=== PATIENT | male | born 1945 | race Caucasian/White ===

== ENCOUNTER → 2017-07-09 | Outpatient (CLI) | payer OTHER ==
[~2017-07-09] MED LIST: ATOR40TA71 PO; DABI150C PO; DIGO125T87 PO; DILT300C3 PO; FURO40TA5 PO; METH750T3 PO; MULT-1258 PO; OMEP20TA25 PO; SPIR25TA6 PO; TRAM50TA4 PO; VALS160T29 PO
== END | disposition home or self-care (01) ==
LOC: RAH 14:17
PROVIDERS: ATTEND Surgery
DX: N63.42 Unspecified lump in left breast, subareolar (principal)
CPT/HCPCS: 76641

== ENCOUNTER → 2017-10-14 | Outpatient (CLI) | payer OTHER ==
[~2017-10-14] MED LIST changes: -DILT300C3 PO; +DILT300C54 PO
== END | disposition home or self-care (01) ==
LOC: SHCH 08:03
PROVIDERS: ATTEND Internal Medicine Cardiovascular Disease
DX: I48.2 Chronic atrial fibrillation (principal); I34.0 Nonrheumatic mitral (valve) insufficiency; I11.0 Hypertensive heart disease with heart failure; I50.42 Chronic combined systolic (congestive) and diastolic (congestive) heart failure; I25.10 Atherosclerotic heart disease of native coronary artery without angina pectoris
CPT/HCPCS: 93306

== ENCOUNTER → 2017-12-04 | Outpatient (CLI) | payer OTHER ==
[~2017-12-04] MED LIST changes: +BACL10TA PO; +METO100T14 PO; +POTA-9 PO; +SACU1TAB7 PO
== END | disposition home or self-care (01) ==
LOC: SHCH 11:03
PROVIDERS: ATTEND Internal Medicine Cardiovascular Disease
DX: I51.7 Cardiomegaly (principal); I48.2 Chronic atrial fibrillation; Z95.0 Presence of cardiac pacemaker
CPT/HCPCS: 93306

== ENCOUNTER 2017-12-30 10:00 | Inpatient (IN) | payer OTHER ==
[~2017-12-30] VITALS: Ht 185.4 cm; Wt 97.2 kg
[~2017-12-30 10:00] MED LIST changes: -ATOR40TA71 PO; -DIGO125T87 PO; -DILT300C54 PO; -FURO40TA5 PO; +FURO40TA7 PO; -METH750T3 PO; -METO100T14 PO; -OMEP20TA25 PO; -SPIR25TA6 PO; -TRAM50TA4 PO; -VALS160T29 PO
[2017-12-30 12:15] VITALS: BP 148/91
[2017-12-30 12:19] LABS: BASOPHILS % (AUTO) 1.7 % (0.0-5.0); EOSINOPHILS % (AUTO) 2.6 % (0.0-8.0); HEMATOCRIT 45.3 % (42-54); LYMPHOCYTES % (AUTO) 26.9 % (21.0-51.0); MEAN CORPUSCULAR HEMOGLOBIN 29.8 pg (27.0-33.0); MEAN CORPUSCULAR HGB CONC 32.5 g/dL (32.0-36.0); MEAN CORPUSCULAR VOLUME 91.7 fL (79-99); MONOCYTES % (AUTO) 11.1 % (3.0-13.0); NEUTROPHILS % (AUTO) 57.7 % (40.0-77.0); NUCLEATED RED BLOOD CELLS 0.1 % (0.0-0.19); PLATELET COUNT (AUTO) 144 K/uL (130-400); RED BLOOD CELL COUNT(AUTO) 4.94 MIL/uL (4.50-6.20); RED CELL DISTRIBUTION WIDTH 16.1 % (11.0-15.5); WHITE BLOOD COUNT (AUTO) 4.8 K/uL (4.8-10.8)
[2017-12-30] MEDS ORDERED: METO100T14 PO (12:34)
[2017-12-30] MEDS ORDERED: ATOR40TA71 PO (12:35)
[2017-12-30 12:36] LABS: ALBUMIN 3.2 g/dL (3.5-5.0); BILIRUBIN,TOTAL 0.8 mg/dL (0.2-1.0); CREATININE 1.2 mg/dL (0.5-1.5); POTASSIUM 4.6 mmol/L (3.5-5.1); TOTAL PROTEIN, SERUM 6.9 g/dL (6.0-8.3)
[2017-12-30 12:45] LABS: HEMOGLOBIN A1C 6.3 % (4.0-6.0)
[2017-12-30 13:08] LABS: INR 1.02 (0.85-1.15); PARTIAL THROMBOPLASTIN TIME 28.9 SEC (26.3-35.5); PROTHROMBIN TIME 10.7 SEC (9.6-11.6)
[2017-12-31] VITALS (18 sets, daily range): BP systolic 94–159; BP diastolic 50–86
[2017-12-31] MEDS: CEFUROXIME SODIUM 1.5 GM VIAL IVP SCH ×3 (06:30→21:02)
[2017-12-31] MEDS ORDERED: SODIUM CHLORIDE 0.9% 1000ML 1,000 ML IV ONE (06:38)
[2017-12-31] MEDS ORDERED: PAPAVERINE HCL 30 MG/ML 2ML VIAL ONE (07:18)
[2017-12-31] MEDS ORDERED: NITROGLYCERIN 50 MG/D5% WATER 1 BOT ONE (07:19)
[2017-12-31] MEDS ORDERED: BACITRACIN 50,000 UNIT VIAL ONE (07:19)
[2017-12-31] MEDS ORDERED: AMIODARONE HCL 50 MG/ML 3 ML VIAL ONE (07:35)
[2017-12-31] MEDS ORDERED: ROCURONIUM BROMIDE 10MG/1ML 5ML VL ONE (07:35)
[2017-12-31] MEDS ORDERED: SODIUM BICARB 50MEQ 50ML VIAL ONE (08:03)
[2017-12-31] MEDS ORDERED: PROTAMINE SULFATE 10 MG/ML 25ML VIAL IV ONE (08:03)
[2017-12-31] MEDS ORDERED: ESMOLOL HCL 10 MG/ML 10 ML VIAL ONE (08:03)
[2017-12-31] MEDS ORDERED: EPINEPHRINE 1 MG/ML AMPULE ONE (08:03)
[2017-12-31] MEDS ORDERED: LIDOCAINE PF 2% 5ML ABBOJECT ONE (08:03)
[2017-12-31] MEDS ORDERED: HEPARIN SODIUM 1000UNIT/ML 10ML VIAL ONE (08:03)
[2017-12-31] MEDS ORDERED: NOREPINEPHRINE BITARTRATE 1 MG/1 ML ML IV ONE (08:04)
[2017-12-31] MEDS ORDERED: AMINOCAPROIC ACID 250 MG/ML 20 ML VIAL IV ONE ×2 (08:04→12:00)
[2017-12-31] MEDS ORDERED: KETAMINE 50MG/ML SYRINGE 50 MG/ML DISP.SYRIN IV ONE (08:04)
[2017-12-31] MEDS ORDERED: MIDAZOLAM HCL 1 MG/ML 5ML VIAL ONE (08:04)
[2017-12-31] MEDS ORDERED: FENTANYL CITRATE PF 50 MCG/1 ML 20ML VIAL IJ ONE (08:04)
[2017-12-31] MEDS ORDERED: PROPOFOL 10 MG/ML 20ML VIAL IV ONE (08:04)
[2017-12-31] MEDS ORDERED: THROMBIN-JMI 5000 UNIT/VIAL TP ONE (08:12)
[2017-12-31] MEDS ORDERED: CITRIC ACID/SODIUM CITRATE 30 ML UDCUP ONE (08:39)
[2017-12-31 08:57] LABS: ABG BASE EXCESS -1.3 mmol/L (-2.0-3.0); ABG HCO3 23.2 mmol/L (21.0-28.0); ABG OXYGEN SATURATION 99.5 % (95.0-99.0); ABG PCO2 39 mmHg (35-48)
[2017-12-31] MEDS ORDERED: SODIUM CHLORIDE 0.9% 500ML 500 ML IV SCH (09:26)
[2017-12-31] MEDS ORDERED: ACETAMINOPHEN 650 MG SUPPOSITORY RC PRN (09:30)
[2017-12-31] MEDS ORDERED: MORPHINE SULFATE 4 MG/1ML SYG IV PRN (09:30)
[2017-12-31] MEDS ORDERED: NITROGLYCERIN 50 MG/D5% WATER 250 BOT IV SCH (09:30)
[2017-12-31] MEDS ORDERED: MAGNESIUM 2GM PREMIX 50ML 50 ML IV PRN (09:30)
[2017-12-31] MEDS ORDERED: ONDANSETRON HCL 4 MG/2 ML VIAL IV PRN (09:30)
[2017-12-31] MEDS ORDERED: AMINOCAPROIC ACID 15,000 MG in SODIUM CHLORIDE 0.9% 250 ML IV SCH (09:30)
[2017-12-31] MEDS ORDERED: GLUCAGON 1MG KIT 1 MG ML IM PRN (09:30)
[2017-12-31] MEDS ORDERED: SODIUM CHLORIDE 0.9% 1000ML 1,000 ML IV SCH (09:30)
[2017-12-31] MEDS ORDERED: INSULIN REGULAR, HUMAN 3ML 100 UNIT in SODIUM CHLORIDE 0.9% 99 ML IV SCH ×2 (09:30)
[2017-12-31] MEDS ORDERED: ALBUMIN (HUMAN) 5% 250 ML IV PRN (09:30)
[2017-12-31] MEDS ORDERED: MORPHINE SULFATE 2 MG/ML 1ML SYG IV PRN (09:30)
[2017-12-31] MEDS ORDERED: NOREPINEPHRINE 4MG/NS 250ML 250 ML IV PRN (09:30)
[2017-12-31] MEDS ORDERED: SODIUM CHLORIDE 0.9% 250 ML IV PRN (09:30)
[2017-12-31] MEDS ORDERED: DEXTROSE 50%-WATER 50 ML DISP.SYRIN IV PRN (09:30)
[2017-12-31] MEDS ORDERED: SODIUM CHLORIDE 0.9% 10 ML VIAL IVP PRN (09:30)
[2017-12-31] MEDS ORDERED: CALCIUM GLUCONATE 1 GM in SODIUM CHLORIDE 0.9% 50 ML IV PRN (09:30)
[2017-12-31] MEDS ORDERED: POTASSIUM PHOS 15 mMOL+NS250ML 250 ML IV PRN (09:30)
[2017-12-31] MEDS ORDERED: EPINEPHRINE 8 MG in SODIUM CHLORIDE 0.9% 250 ML IV PRN (09:30)
[2017-12-31] MEDS ORDERED: PROPOFOL 1000 MG/100 ML 100 ML IV PRN (09:30)
[2017-12-31] MEDS ORDERED: ROCURONIUM 10MG/1ML SYR 10 MG/ML ML ONE (09:48)
[2017-12-31 09:50] LABS: ABG BASE EXCESS -0.3 mmol/L (-2.0-3.0); ABG PCO2 33 mmHg (35-48)
[2017-12-31 10:39] LABS: ABG BASE EXCESS 0.9 mmol/L (-2.0-3.0); ABG HCO3 24.3 mmol/L (21.0-28.0); ABG OXYGEN SATURATION 98.7 % (95.0-99.0); ABG PCO2 35 mmHg (35-48)
[2017-12-31 11:08] LABS: ABG BASE EXCESS 0.4 mmol/L (-2.0-3.0); ABG OXYGEN SATURATION 98.7 % (95.0-99.0); ABG PCO2 36 mmHg (35-48)
[2017-12-31] MEDS ORDERED: OCTYL 2-CYANOACRYLATE 1 EACH TP ONE (11:18)
[2017-12-31 11:48] LABS: ABG BASE EXCESS -0.4 mmol/L (-2.0-3.0); ABG HCO3 23.4 mmol/L (21.0-28.0); ABG OXYGEN SATURATION 98.8 % (95.0-99.0); ABG PCO2 36 mmHg (35-48)
[2017-12-31] MEDS ORDERED: PROTAMINE SULFATE 10 MG/ML 5 ML VIAL ONE (11:56)
[2017-12-31] MEDS ORDERED: HEPARIN SODIUM 1000UNIT/ML 10ML VIAL IV ONE (12:00)
[2017-12-31] MEDS ORDERED: CALCIUM CHLORIDE 100 MG/ML 10 ML SYG IVP ONE (12:00)
[2017-12-31] MEDS ORDERED: ALBUMIN (HUMAN) 25% 50 ML IV ONE (12:00)
[2017-12-31] MEDS ORDERED: MANNITOL 25% 50ML VIAL IV ONE (12:00)
[2017-12-31] MEDS ORDERED: PHENYLEPHRINE HCL 10 MG/ML 1ML VIAL IV ONE (12:00)
[2017-12-31] MEDS ORDERED: SODIUM BICARB 8.4% 50ML SYRINGE IVP ONE (12:00)
[2017-12-31] MEDS ORDERED: FUROSEMIDE 10 MG/ML 2ML VIAL IVP ONE (12:00)
[2017-12-31] MEDS ORDERED: CEFUROXIME SODIUM 1.5 GM VIAL ONE (12:16)
[2017-12-31 12:29] LABS: ABG HCO3 22.5 mmol/L (21.0-28.0); ABG OXYGEN SATURATION 98.7 % (95.0-99.0); ABG PCO2 38 mmHg (35-48)
[2017-12-31 13:25] LABS: ABG BASE EXCESS -5.4 mmol/L (-2.0-3.0); ABG HCO3 20.2 mmol/L (21.0-28.0); ABG OXYGEN SATURATION 97.1 % (95.0-99.0); ABG PCO2 40 mmHg (35-48)
[2017-12-31 13:31] LABS: HEMATOCRIT 37.8 % (42-54); MEAN CORPUSCULAR HEMOGLOBIN 30.5 pg (27.0-33.0); MEAN CORPUSCULAR HGB CONC 33.4 g/dL (32.0-36.0); MEAN CORPUSCULAR VOLUME 91.3 fL (79-99); PLATELET COUNT (AUTO) 176 K/uL (130-400); RED BLOOD CELL COUNT(AUTO) 4.14 MIL/uL (4.50-6.20); RED CELL DISTRIBUTION WIDTH 16.2 % (11.0-15.5); WHITE BLOOD COUNT (AUTO) 13.5 K/uL (4.8-10.8)
[2017-12-31 13:42] LABS: CREATININE 1.4 mg/dL (0.5-1.5); MAGNESIUM 1.7 mg/dL (1.80-2.40); PHOSPHORUS 3.3 mg/dL (2.5-4.9); POTASSIUM 3.7 mmol/L (3.5-5.1)
[2017-12-31] MEDS: POTASSIUM CHLORIDE 20MEQ/100ML 100 ML IV PRN ×2 (13:59→21:21)
[2017-12-31] MEDS: SODIUM BICARB 50MEQ 50ML VIAL IV PRN ×2 (13:59→16:28)
[2017-12-31 15:03] LABS: ABG BASE EXCESS -1.5 mmol/L (-2.0-3.0); ABG HCO3 22.7 mmol/L (21.0-28.0); ABG OXYGEN SATURATION 96.6 % (95.0-99.0); ABG PCO2 37 mmHg (35-48)
[2017-12-31 16:12] LABS: ABG BASE EXCESS -8.8 mmol/L (-2.0-3.0); ABG OXYGEN SATURATION 96.9 % (95.0-99.0); ABG PCO2 23 mmHg (35-48)
[2017-12-31] MEDS ORDERED: KETOROLAC TROMETHAMINE 30MG/ML ONE (16:47)
[2017-12-31 17:22] LABS: ABG BASE EXCESS 3.6 mmol/L (-2.0-3.0); ABG OXYGEN SATURATION 97.6 % (95.0-99.0); ABG PCO2 37 mmHg (35-48)
[2017-12-31] MEDS ORDERED: KETOROLAC TROMETHAMINE 30MG/ML IV ONE (17:45)
[2017-12-31 18:45] LABS: ABG HCO3 26.8 mmol/L (21.0-28.0); ABG OXYGEN SATURATION 98.3 % (95.0-99.0); ABG PCO2 38 mmHg (35-48)
[2017-12-31] MEDS: TRAMADOL HCL 50 MG TABLET PO PRN (19:31)
[2017-12-31] MEDS: ATORVASTATIN CALCIUM 40 MG TABLET PO SCH (21:00)
[2017-12-31 21:11] LABS: MAGNESIUM 2.4 mg/dL (1.80-2.40); POTASSIUM 3.6 mmol/L (3.5-5.1)
[2018-01-01] VITALS (26 sets, daily range): BP systolic 89–144; BP diastolic 46–74
[2018-01-01] MEDS: TRAMADOL HCL 50 MG TABLET PO PRN (01:32)
[2018-01-01 03:49] LABS: HEMATOCRIT 33.7 % (42-54); MEAN CORPUSCULAR HEMOGLOBIN 30.1 pg (27.0-33.0); MEAN CORPUSCULAR HGB CONC 33.2 g/dL (32.0-36.0); MEAN CORPUSCULAR VOLUME 90.5 fL (79-99); NUCLEATED RED BLOOD CELLS 0.1 % (0.0-0.19); PLATELET COUNT (AUTO) 120 K/uL (130-400); RED BLOOD CELL COUNT(AUTO) 3.72 MIL/uL (4.50-6.20); RED CELL DISTRIBUTION WIDTH 16.5 % (11.0-15.5); WHITE BLOOD COUNT (AUTO) 6.8 K/uL (4.8-10.8)
[2018-01-01 04:00] LABS: INR 1.15 (0.85-1.15); PARTIAL THROMBOPLASTIN TIME 28.2 SEC (26.3-35.5)
[2018-01-01 04:04] LABS: CREATININE 1.5 mg/dL (0.5-1.5); MAGNESIUM 2.4 mg/dL (1.80-2.40); PHOSPHORUS 4.8 mg/dL (2.5-4.9); POTASSIUM 3.7 mmol/L (3.5-5.1)
[2018-01-01] MEDS: POTASSIUM CHLORIDE 20MEQ/100ML 100 ML IV PRN (04:11)
[2018-01-01 05:29] LABS: ABG OXYGEN SATURATION 97.4 % (95.0-99.0); ABG PCO2 34 mmHg (35-48)
[2018-01-01] MEDS ORDERED: BACLOFEN 10 MG TABLET PO PRN (05:45)
[2018-01-01] MEDS: CEFUROXIME SODIUM 1.5 GM VIAL IVP SCH ×3 (06:01→20:15)
[2018-01-01] MEDS ORDERED: METOPROLOL TARTRATE 1 MG/ML 5ML VIAL IV PRN (06:45)
[2018-01-01] MEDS: HYDROCODONE/ACETAMINOPHEN 10/325 MG TAB PO PRN ×4 (06:53→23:46)
[2018-01-01] MEDS: PANTOPRAZOLE SODIUM 40 MG TABLET.DR PO SCH (08:16)
[2018-01-01] MEDS: ASPIRIN 325MG EC TAB 325 MG TABLET.DR PO SCH (08:16)
[2018-01-01] MEDS ORDERED: FUROSEMIDE 10 MG/ML 2ML VIAL IV SCH (09:00)
[2018-01-01] MEDS ORDERED: ENALAPRILAT DIHYDRATE 1.25MG/ML 1ML VIAL IV PRN (09:00)
[2018-01-01] MEDS: METOPROLOL TARTRATE 50 MG TAB PO SCH ×2 (09:27→20:04)
[2018-01-01] MEDS: ATORVASTATIN CALCIUM 40 MG TABLET PO SCH (20:04)
[2018-01-01] MEDS ORDERED: FUROSEMIDE 10 MG/ML 4ML VIAL IV SCH (21:00)
[2018-01-02] VITALS (27 sets, daily range): BP systolic 79–161; BP diastolic 38–92
[2018-01-02] MEDS: HYDROCODONE/ACETAMINOPHEN 10/325 MG TAB PO PRN ×4 (02:30→23:43)
[2018-01-02 03:32] LABS: HEMATOCRIT 33.3 % (42-54); MEAN CORPUSCULAR HEMOGLOBIN 29.8 pg (27.0-33.0); MEAN CORPUSCULAR HGB CONC 32.4 g/dL (32.0-36.0); MEAN CORPUSCULAR VOLUME 91.9 fL (79-99); PLATELET COUNT (AUTO) 125 K/uL (130-400); RED BLOOD CELL COUNT(AUTO) 3.62 MIL/uL (4.50-6.20); RED CELL DISTRIBUTION WIDTH 16.4 % (11.0-15.5); WHITE BLOOD COUNT (AUTO) 9.1 K/uL (4.8-10.8)
[2018-01-02 03:36] LABS: CREATININE 2.4 mg/dL (0.5-1.5); MAGNESIUM 2.2 mg/dL (1.80-2.40); PHOSPHORUS 5.6 mg/dL (2.5-4.9); POTASSIUM 4.2 mmol/L (3.5-5.1)
[2018-01-02] MEDS ORDERED: FUROSEMIDE 10 MG/ML 4ML VIAL IV SCH (08:00)
[2018-01-02] MEDS: SODIUM CHLORIDE 0.9% 1000ML 1,000 ML IV SCH ×2 (08:00→20:45)
[2018-01-02] MEDS: ENOXAPARIN SODIUM 30 MG/0.3 ML SQ SCH (08:27)
[2018-01-02] MEDS: PANTOPRAZOLE SODIUM 40 MG TABLET.DR PO SCH (08:28)
[2018-01-02] MEDS: ASPIRIN 325MG EC TAB 325 MG TABLET.DR PO SCH (08:28)
[2018-01-02] MEDS ORDERED: METOPROLOL TARTRATE 25 MG TAB PO SCH (09:00)
[2018-01-02] MEDS ORDERED: FUROSEMIDE 20 MG TABLET PO SCH (09:00)
[2018-01-02] MEDS: DOPAMINE 800MG/D5 250ML 250 ML IV PRN ×2 (09:13→20:45)
[2018-01-02] MEDS ORDERED: NOREPINEPHRINE 4MG/NS 250ML 250 ML IV SCH (12:30)
[2018-01-02] MEDS ORDERED: CEFEPIME HCL 2 GM VIAL IVP SCH (14:00)
[2018-01-02 14:10] LABS: BILIRUBIN,URINE Small (NEGATIVE); COLOR,URINE Dark Yellow (YELLOW); GLUCOSE, URINE (UA) Negative (NEGATIVE); KETONES,URINE Trace mg/dL (NEGATIVE); LEUKOCYTE ESTERASE ,URINE Small (NEGATIVE); NITRATE,URINE Negative (NEGATIVE); OCCULT BLOOD,URINE Small (NEGATIVE); PROTEIN,URINE Negative (NEGATIVE)
[2018-01-02 14:11] LABS: SODIUM,URINE RANDOM < 15 mmol/l (40-220)
[2018-01-02 14:13] LABS: APPEARANCE,URINE SLIGHTLY CLOUDY (CLEAR)
[2018-01-02 14:18] LABS: BACTERIA,URINE Few /HPF (None Seen)
[2018-01-02 14:19] LABS: MUCUS,URINE Few LPF (None Seen); SQUAMOUS EPITHELIAL CELL,UR Rare /HPF (0-2)
[2018-01-02] MEDS: CEFEPIME HCL 1 GM VIAL IVP SCH (15:29)
[2018-01-02] MEDS: ATORVASTATIN CALCIUM 40 MG TABLET PO SCH (20:44)
[2018-01-02] MEDS: DOXYCYCLINE HYCLATE 100 MG TABLET PO SCH (20:45)
[2018-01-03] VITALS (25 sets, daily range): BP systolic 105–159; BP diastolic 48–101
[2018-01-03] MEDS: CEFEPIME HCL 1 GM VIAL IVP SCH ×2 (01:21→13:23)
[2018-01-03 04:27] LABS: HEMATOCRIT 28.4 % (42-54); MEAN CORPUSCULAR HEMOGLOBIN 30.2 pg (27.0-33.0); MEAN CORPUSCULAR VOLUME 91.7 fL (79-99); NUCLEATED RED BLOOD CELLS 0.1 % (0.0-0.19); PLATELET COUNT (AUTO) 112 K/uL (130-400); RED CELL DISTRIBUTION WIDTH 16.8 % (11.0-15.5); WHITE BLOOD COUNT (AUTO) 7.1 K/uL (4.8-10.8)
[2018-01-03 04:53] LABS: ALBUMIN 2.2 g/dL (3.5-5.0); BILIRUBIN,TOTAL 1.3 mg/dL (0.2-1.0); CREATININE 1.9 mg/dL (0.5-1.5); MAGNESIUM 2.3 mg/dL (1.80-2.40); PHOSPHORUS 4.1 mg/dL (2.5-4.9); THYROID STIMULATING HORMONE 3.91 uIU/mL (0.36-3.74); TOTAL PROTEIN, SERUM 5.7 g/dL (6.0-8.3); URIC ACID 8.8 mg/dL (2.6-7.2)
[2018-01-03] MEDS ORDERED: FUROSEMIDE 20 MG TABLET PO SCH (09:00)
[2018-01-03] MEDS: FOLIC ACID/VITAMIN B COMP W-C 1 MG CAPSULE PO SCH (09:25)
[2018-01-03] MEDS: ASPIRIN 325MG EC TAB 325 MG TABLET.DR PO SCH (09:25)
[2018-01-03] MEDS: ENOXAPARIN SODIUM 30 MG/0.3 ML SQ SCH (09:25)
[2018-01-03] MEDS: DOXYCYCLINE HYCLATE 100 MG TABLET PO SCH ×2 (09:25→20:44)
[2018-01-03] MEDS: PANTOPRAZOLE SODIUM 40 MG TABLET.DR PO SCH (09:25)
[2018-01-03] MEDS: HYDROCODONE/ACETAMINOPHEN 10/325 MG TAB PO PRN ×2 (09:26→15:27)
[2018-01-03] MEDS: SODIUM CHLORIDE 0.9% 1000ML 1,000 ML IV SCH (09:59)
[2018-01-03] MEDS ORDERED: DIGOXIN 250 MCG/ML 2ML AMP IV SCH (10:00)
[2018-01-03] MEDS: METOPROLOL TARTRATE 25 MG TAB PO SCH ×2 (13:23→20:44)
[2018-01-03] MEDS: ATORVASTATIN CALCIUM 40 MG TABLET PO SCH (20:44)
[2018-01-04] VITALS (15 sets, daily range): BP systolic 123–154; BP diastolic 63–94
[2018-01-04] MEDS: CEFEPIME HCL 1 GM VIAL IVP SCH (01:38)
[2018-01-04] MEDS: TRAMADOL HCL 50 MG TABLET PO PRN (03:53)
[2018-01-04 04:15] LABS: HEMATOCRIT 29.6 % (42-54); MEAN CORPUSCULAR HEMOGLOBIN 31.2 pg (27.0-33.0); MEAN CORPUSCULAR HGB CONC 33.7 g/dL (32.0-36.0); MEAN CORPUSCULAR VOLUME 92.5 fL (79-99); NUCLEATED RED BLOOD CELLS 0.1 % (0.0-0.19); PLATELET COUNT (AUTO) 139 K/uL (130-400); RED CELL DISTRIBUTION WIDTH 16.3 % (11.0-15.5)
[2018-01-04 04:21] LABS: CREATININE 1.4 mg/dL (0.5-1.5); POTASSIUM 3.9 mmol/L (3.5-5.1)
[2018-01-04 04:30] LABS: BAND NEUTROPHILS % (MANUAL) 2 % (0-2); LYMPHOCYTES % (MANUAL) 20 % (22-44); MONOCYTES % (MANUAL) 14 % (2-9); SEGMENTED NEUTROPHILS % 64 % (40-70)
[2018-01-04 04:31] LABS: MAN.DIFF COMMENT-IMPRESSION MANUAL DIFFERENTIAL; PLATELET MORPHOLOGY COMMENT SLIGHTLY DECREASED
[2018-01-04] MEDS: ASPIRIN 325MG EC TAB 325 MG TABLET.DR PO SCH (08:03)
[2018-01-04] MEDS: METOPROLOL TARTRATE 25 MG TAB PO SCH (08:03)
[2018-01-04] MEDS: DOXYCYCLINE HYCLATE 100 MG TABLET PO SCH ×2 (08:03→20:02)
[2018-01-04] MEDS: FOLIC ACID/VITAMIN B COMP W-C 1 MG CAPSULE PO SCH (08:03)
[2018-01-04] MEDS: PANTOPRAZOLE SODIUM 40 MG TABLET.DR PO SCH (08:03)
[2018-01-04] MEDS: ENOXAPARIN SODIUM 30 MG/0.3 ML SQ SCH (08:58)
[2018-01-04] MEDS ORDERED: DIGOXIN 125 MCG TABLET PO SCH (09:00)
[2018-01-04] MEDS ORDERED: BACLOFEN 10 MG TABLET PO PRN (11:00)
[2018-01-04] MEDS: DILTIAZEM HCL 60 MG TABLET PO SCH ×2 (13:58→20:05)
[2018-01-04] MEDS: ATORVASTATIN CALCIUM 40 MG TABLET PO SCH (20:02)
[2018-01-04] MEDS: METOPROLOL TARTRATE 50 MG TAB PO SCH (20:02)
[2018-01-04] MEDS: DABIGATRAN ETEXILATE MESYLATE 150 MG CAPSULE PO SCH (20:08)
[2018-01-04] MEDS: HYDROCODONE/ACETAMINOPHEN 10/325 MG TAB PO PRN (21:28)
[2018-01-05 03:57] VITALS: BP 156/88
[2018-01-05 04:26] LABS: BASOPHILS % (AUTO) 0.9 % (0.0-5.0); EOSINOPHILS % (AUTO) 1.3 % (0.0-8.0); HEMATOCRIT 29.8 % (42-54); LYMPHOCYTES % (AUTO) 11.8 % (21.0-51.0); MEAN CORPUSCULAR HEMOGLOBIN 30.2 pg (27.0-33.0); MEAN CORPUSCULAR HGB CONC 33.2 g/dL (32.0-36.0); MEAN CORPUSCULAR VOLUME 91.2 fL (79-99); MONOCYTES % (AUTO) 22.6 % (3.0-13.0); NEUTROPHILS % (AUTO) 63.4 % (40.0-77.0); NUCLEATED RED BLOOD CELLS 0.4 % (0.0-0.19); PLATELET COUNT (AUTO) 158 K/uL (130-400); RED BLOOD CELL COUNT(AUTO) 3.27 MIL/uL (4.50-6.20); RED CELL DISTRIBUTION WIDTH 16.1 % (11.0-15.5)
[2018-01-05 04:44] LABS: CREATININE 1.2 mg/dL (0.5-1.5); MAGNESIUM 2.4 mg/dL (1.80-2.40); PHOSPHORUS 2.8 mg/dL (2.5-4.9); POTASSIUM 3.9 mmol/L (3.5-5.1)
[2018-01-05 07:45] VITALS: BP 148/84
[2018-01-05] MEDS ORDERED: ASPIRIN 325MG EC TAB 325 MG TABLET.DR PO SCH (09:00)
[2018-01-05] MEDS: DABIGATRAN ETEXILATE MESYLATE 150 MG CAPSULE PO SCH ×2 (09:49→20:30)
[2018-01-05] MEDS: FUROSEMIDE 40 MG TABLET PO SCH ×2 (09:49→18:47)
[2018-01-05] MEDS: FOLIC ACID/VITAMIN B COMP W-C 1 MG CAPSULE PO SCH (09:50)
[2018-01-05] MEDS: ACETAMINOPHEN 325 MG TAB PO PRN ×2 (09:50→18:09)
[2018-01-05] MEDS: ASPIRIN 81 MG EC TAB PO SCH (09:51)
[2018-01-05] MEDS: POTASSIUM CHLORIDE 20 MEQ ERTAB PO SCH (09:51)
[2018-01-05] MEDS: PANTOPRAZOLE SODIUM 40 MG TABLET.DR PO SCH (09:51)
[2018-01-05] MEDS: DOXYCYCLINE HYCLATE 100 MG TABLET PO SCH ×2 (09:51→20:30)
[2018-01-05] MEDS: METOPROLOL TARTRATE 50 MG TAB PO SCH ×2 (09:51→20:30)
[2018-01-05] MEDS: DILTIAZEM HCL 120 MG CAP.SR.24H PO SCH (09:54)
[2018-01-05] MEDS: POLYETHYLENE GLYCOL 3350 17 GM POWD.PACK PO SCH (09:54)
[2018-01-05 11:50] VITALS: BP 114/65
[2018-01-05] MEDS ORDERED: LACTULOSE 20 GM/30 ML UDCUP PO PRN (13:30)
[2018-01-05 16:57] VITALS: BP 145/88
[2018-01-05 19:00] VITALS: BP 141/93
[2018-01-05] MEDS: TRAMADOL HCL 50 MG TABLET PO PRN (20:00)
[2018-01-05] MEDS ORDERED: FUROSEMIDE 10 MG/ML 4ML VIAL IV ONE (20:15)
[2018-01-05] MEDS ORDERED: ATORVASTATIN CALCIUM 20 MG TABLET ONE (20:27)
[2018-01-05] MEDS: ATORVASTATIN CALCIUM 40 MG TABLET PO SCH (20:30)
[2018-01-05 23:00] VITALS: BP 147/80
[2018-01-06] MEDS: ACETAMINOPHEN 325 MG TAB PO PRN ×2 (01:03→18:36)
[2018-01-06 04:00] VITALS: BP 143/89
[2018-01-06 07:51] VITALS: BP 142/89
[2018-01-06 08:23] LABS: CREATININE 1.2 mg/dL (0.5-1.5); POTASSIUM 3.6 mmol/L (3.5-5.1)
[2018-01-06] MEDS: POTASSIUM CHLORIDE 20 MEQ ERTAB PO SCH ×4 (09:00→21:22)
[2018-01-06] MEDS ORDERED: FUROSEMIDE 10 MG/ML 4ML VIAL IV ONE (09:00)
[2018-01-06] MEDS ORDERED: FUROSEMIDE 10 MG/ML 4ML VIAL IV SCH (09:00)
[2018-01-06] MEDS: DABIGATRAN ETEXILATE MESYLATE 150 MG CAPSULE PO SCH ×2 (10:09→21:23)
[2018-01-06] MEDS: POLYETHYLENE GLYCOL 3350 17 GM POWD.PACK PO SCH (10:09)
[2018-01-06] MEDS: ASPIRIN 81 MG EC TAB PO SCH (10:10)
[2018-01-06] MEDS: FOLIC ACID/VITAMIN B COMP W-C 1 MG CAPSULE PO SCH (10:10)
[2018-01-06] MEDS: DOXYCYCLINE HYCLATE 100 MG TABLET PO SCH ×2 (10:10→21:21)
[2018-01-06] MEDS: DILTIAZEM HCL 120 MG CAP.SR.24H PO SCH (10:10)
[2018-01-06] MEDS: PANTOPRAZOLE SODIUM 40 MG TABLET.DR PO SCH (10:10)
[2018-01-06] MEDS: METOPROLOL TARTRATE 50 MG TAB PO SCH ×2 (10:10→21:23)
[2018-01-06 11:38] VITALS: BP 130/89
[2018-01-06] MEDS: FUROSEMIDE 10 MG/ML 4ML VIAL IV SCH ×2 (14:55→21:21)
[2018-01-06 16:48] VITALS: BP 138/69
[2018-01-06 20:00] VITALS: BP 133/82
[2018-01-06] MEDS: TRAMADOL HCL 50 MG TABLET PO PRN (21:22)
[2018-01-06] MEDS: ATORVASTATIN CALCIUM 40 MG TABLET PO SCH (21:22)
[2018-01-06] MEDS: CETIRIZINE HCL 5 MG TABLET PO SCH (21:23)
[2018-01-06 23:00] VITALS: BP 135/87
[2018-01-07 04:00] VITALS: BP 151/96
[2018-01-07] MEDS: TRAMADOL HCL 50 MG TABLET PO PRN ×2 (06:44→20:47)
[2018-01-07] MEDS: ASPIRIN 81 MG EC TAB PO SCH (07:12)
[2018-01-07] MEDS: FOLIC ACID/VITAMIN B COMP W-C 1 MG CAPSULE PO SCH (07:12)
[2018-01-07] MEDS: METOPROLOL TARTRATE 50 MG TAB PO SCH ×2 (07:12→20:46)
[2018-01-07] MEDS: DOXYCYCLINE HYCLATE 100 MG TABLET PO SCH ×2 (07:12→20:46)
[2018-01-07] MEDS: PANTOPRAZOLE SODIUM 40 MG TABLET.DR PO SCH (07:12)
[2018-01-07] MEDS: DILTIAZEM HCL 120 MG CAP.SR.24H PO SCH (07:12)
[2018-01-07] MEDS: POTASSIUM CHLORIDE 20 MEQ ERTAB PO SCH (07:13)
[2018-01-07] MEDS: POLYETHYLENE GLYCOL 3350 17 GM POWD.PACK PO SCH (07:13)
[2018-01-07 07:25] VITALS: BP 135/83
[2018-01-07 08:44] LABS: CREATININE 1.2 mg/dL (0.5-1.5); POTASSIUM 4.3 mmol/L (3.5-5.1)
[2018-01-07] MEDS: LOSARTAN 50 MG TABLET PO SCH ×2 (09:00→14:01)
[2018-01-07] MEDS: DABIGATRAN ETEXILATE MESYLATE 150 MG CAPSULE PO SCH ×2 (09:14→20:46)
[2018-01-07] MEDS: FUROSEMIDE 10 MG/ML 4ML VIAL IV SCH ×2 (09:50→20:47)
[2018-01-07 11:09] VITALS: BP 124/71
[2018-01-07] MEDS: ACETAMINOPHEN 325 MG TAB PO PRN ×2 (12:16→18:43)
[2018-01-07 15:59] VITALS: BP 125/74
[2018-01-07] MEDS: CETIRIZINE HCL 5 MG TABLET PO SCH ×2 (18:44→20:46)
[2018-01-07 20:02] VITALS: BP 129/90
[2018-01-07] MEDS: ATORVASTATIN CALCIUM 40 MG TABLET PO SCH (20:45)
[2018-01-08] VITALS: BP 121/75
[2018-01-08] MEDS: TRAMADOL HCL 50 MG TABLET PO PRN (03:37)
[2018-01-08 04:01] LABS: CREATININE 1.3 mg/dL (0.5-1.5); POTASSIUM 3.9 mmol/L (3.5-5.1)
[2018-01-08 04:20] VITALS: BP 153/93
[2018-01-08] MEDS: POTASSIUM CHLORIDE 20 MEQ ERTAB PO SCH (07:11)
[2018-01-08] MEDS: DABIGATRAN ETEXILATE MESYLATE 150 MG CAPSULE PO SCH (07:11)
[2018-01-08] MEDS: METOPROLOL TARTRATE 50 MG TAB PO SCH (07:12)
[2018-01-08] MEDS: LOSARTAN 50 MG TABLET PO SCH (07:12)
[2018-01-08] MEDS: PANTOPRAZOLE SODIUM 40 MG TABLET.DR PO SCH (07:12)
[2018-01-08] MEDS: DOXYCYCLINE HYCLATE 100 MG TABLET PO SCH (07:12)
[2018-01-08] MEDS: DILTIAZEM HCL 120 MG CAP.SR.24H PO SCH (07:12)
[2018-01-08] MEDS: ASPIRIN 81 MG EC TAB PO SCH (07:12)
[2018-01-08] MEDS: FOLIC ACID/VITAMIN B COMP W-C 1 MG CAPSULE PO SCH (07:12)
[2018-01-08] MEDS: POLYETHYLENE GLYCOL 3350 17 GM POWD.PACK PO SCH (07:13)
[2018-01-08] MEDS: FUROSEMIDE 10 MG/ML 4ML VIAL IV SCH (07:13)
[2018-01-08 07:41] VITALS: BP 142/98
[2018-01-08 11:37] VITALS: BP 119/78
[2018-01-08] MEDS: CETIRIZINE HCL 5 MG TABLET PO SCH (14:40)
== END 2018-01-08 15:30 | disposition home health service (06) | DRG 235 ==
LOC: EDSTATUS 10:00 → DAHIP 12-31 06:30 → 2CV 12-31 09:21 → 2BH 01-01 05:13 → 2DH 01-04 16:04
PROVIDERS: ADMIT Internal Medicine Critical Care Medicine; ATTEND Internal Medicine Critical Care Medicine
PROC: 06BP4ZZ Excision of Right Saphenous Vein, Percutaneous Endoscopic Approach (ICD-10-PCS; 2017-12-31)
PROC: 03BB4ZZ Excision of Right Radial Artery, Percutaneous Endoscopic Approach (ICD-10-PCS; 2017-12-31)
PROC: 5A1221Z Performance of Cardiac Output, Continuous (ICD-10-PCS; 2017-12-31)
PROC: 02100Z9 Bypass Coronary Artery, One Artery from Left Internal Mammary, Open Approach (ICD-10-PCS; principal; 2017-12-31 08:00)
PROC: 02100AW Bypass Coronary Artery, One Artery from Aorta with Autologous Arterial Tissue, Open Approach (ICD-10-PCS; 2017-12-31 08:00)
PROC: 021109W Bypass Coronary Artery, Two Arteries from Aorta with Autologous Venous Tissue, Open Approach (ICD-10-PCS; 2017-12-31 08:00)
PROC: 06BQ4ZZ Excision of Left Saphenous Vein, Percutaneous Endoscopic Approach (ICD-10-PCS; 2017-12-31 08:00)
DX: I25.10 Atherosclerotic heart disease of native coronary artery without angina pectoris (principal); J96.90 Respiratory failure, unspecified, unspecified whether with hypoxia or hypercapnia; I50.23 Acute on chronic systolic (congestive) heart failure; R65.11 Systemic inflammatory response syndrome (SIRS) of non-infectious origin with acute organ dysfunction; D68.69 Other thrombophilia; N17.9 Acute kidney failure, unspecified; I13.0 Hypertensive heart and chronic kidney disease with heart failure and stage 1 through stage 4 chronic kidney disease, or unspecified chronic kidney disease; I25.5 Ischemic cardiomyopathy; I42.6 Alcoholic cardiomyopathy; I95.81 Postprocedural hypotension; D64.9 Anemia, unspecified; E11.22 Type 2 diabetes mellitus with diabetic chronic kidney disease; E11.21 Type 2 diabetes mellitus with diabetic nephropathy; E11.65 Type 2 diabetes mellitus with hyperglycemia; E78.5 Hyperlipidemia, unspecified; I27.21 Secondary pulmonary arterial hypertension; I34.0 Nonrheumatic mitral (valve) insufficiency; I35.8 Other nonrheumatic aortic valve disorders; I48.2 Chronic atrial fibrillation; M19.90 Unspecified osteoarthritis, unspecified site; N18.9 Chronic kidney disease, unspecified; Z79.01 Long term (current) use of anticoagulants; Z79.02 Long term (current) use of antithrombotics/antiplatelets; Z79.82 Long term (current) use of aspirin; Z79.899 Other long term (current) drug therapy; Z95.810 Presence of automatic (implantable) cardiac defibrillator; Z79.4 Long term (current) use of insulin
CPT/HCPCS: 36415; 71045; 71046; 76770; 80048; 80053; 81001; 82435; 82803; 82947; 82948; 83036; 83605; 83735; 83935; 84100; 84132; 84295; 84300; 84443; 84550; 85018; 85025; 85027; 85347; 85610; 85730; 86850; 86900; 86901; 86922; 93005; 93308; 94002; 94010; 94150; 97039; A4218; A7048; J0171; J0282; J0610; J0692; J0697; J1160; J1265; J1644; J1650; J1815; J1885; J1940; J2001; J2150; J2250; J2370; J2440; J2704; J2720; J3010; J3475; J3480; J3490; J7030; J7040; J7120; P9045; P9047

== ENCOUNTER 2018-01-12 07:19 | Emergency (ER) | payer OTHER ==
[~2018-01-12 07:19] MED LIST changes: +ATOR40TA71 PO; -FURO40TA7 PO; -POTA-9 PO; -SACU1TAB7 PO
[2018-01-12 08:17] LABS: CREATININE 1.5 mg/dL (0.5-1.5); POTASSIUM 4.3 mmol/L (3.5-5.1)
[2018-01-12 08:18] LABS: BASOPHILS % (AUTO) 0.6 % (0.0-5.0); EOSINOPHILS % (AUTO) 1.2 % (0.0-8.0); HEMATOCRIT 34.3 % (42-54); LYMPHOCYTES % (AUTO) 14.5 % (21.0-51.0); MEAN CORPUSCULAR HEMOGLOBIN 30.9 pg (27.0-33.0); MEAN CORPUSCULAR HGB CONC 33.3 g/dL (32.0-36.0); MEAN CORPUSCULAR VOLUME 92.9 fL (79-99); MONOCYTES % (AUTO) 12.6 % (3.0-13.0); NEUTROPHILS % (AUTO) 71.1 % (40.0-77.0); NUCLEATED RED BLOOD CELLS 0.8 % (0.0-0.19); PLATELET COUNT (AUTO) 386 K/uL (130-400); RED BLOOD CELL COUNT(AUTO) 3.69 MIL/uL (4.50-6.20); RED CELL DISTRIBUTION WIDTH 17.7 % (11.0-15.5); WHITE BLOOD COUNT (AUTO) 8.2 K/uL (4.8-10.8)
[2018-01-12 08:19] LABS: INR 1.36 (0.85-1.15); PARTIAL THROMBOPLASTIN TIME 41.3 SEC (26.3-35.5); PROTHROMBIN TIME 14.2 SEC (9.6-11.6)
[2018-01-12 08:23] LABS: ALBUMIN 2.8 g/dL (3.5-5.0); BILIRUBIN,TOTAL 2.4 mg/dL (0.2-1.0); TOTAL PROTEIN, SERUM 6.5 g/dL (6.0-8.3)
== END 2018-01-12 12:26 | disposition home or self-care (01) ==
LOC: EDH 07:19
DX: I48.91 Unspecified atrial fibrillation (principal); I10 Essential (primary) hypertension; F41.9 Anxiety disorder, unspecified; E78.5 Hyperlipidemia, unspecified; Z72.0 Tobacco use
CPT/HCPCS: 36415; 71045; 80053; 84484; 85025; 85610; 85730; 93005

== ENCOUNTER → 2018-01-13 | Outpatient (CLI) | payer OTHER ==
[2018-01-13 18:41] LABS: BASOPHILS % (AUTO) 0.8 % (0.0-5.0); EOSINOPHILS % (AUTO) 0.3 % (0.0-8.0); LYMPHOCYTES % (AUTO) 13.5 % (21.0-51.0); MEAN CORPUSCULAR HEMOGLOBIN 29.8 pg (27.0-33.0); MEAN CORPUSCULAR VOLUME 93.1 fL (79-99); NEUTROPHILS % (AUTO) 73.4 % (40.0-77.0); NUCLEATED RED BLOOD CELLS 1.3 % (0.0-0.19); PLATELET COUNT (AUTO) 354 K/uL (130-400); RED BLOOD CELL COUNT(AUTO) 3.66 MIL/uL (4.50-6.20); RED CELL DISTRIBUTION WIDTH 17.8 % (11.0-15.5); WHITE BLOOD COUNT (AUTO) 7.7 K/uL (4.8-10.8)
[2018-01-13 18:53] LABS: CREATININE 1.5 mg/dL (0.5-1.5); POTASSIUM 4.6 mmol/L (3.5-5.1)
[2018-01-13 18:58] LABS: B-TYPE NATRIURETIC PEPTIDE 825 pg/mL (0-100)
[2018-01-13 19:48] LABS: ERYTHROCYTE SEDIMENTATION RATE 35 MM/HR (0-20)
== END | disposition home or self-care (01) ==
LOC: LAB 18:07
PROVIDERS: ATTEND Internal Medicine
DX: D68.59 Other primary thrombophilia (principal)
CPT/HCPCS: 36415; 80048; 83880; 85025; 85378; 85651

== ENCOUNTER 2018-01-26 13:07 | Inpatient (IN) | payer OTHER ==
[~2018-01-26] VITALS: Ht 185.4 cm; Wt 92.3 kg
[2018-01-26 14:11] LABS: BASOPHILS % (AUTO) 0.5 % (0.0-5.0); EOSINOPHILS % (AUTO) 0.5 % (0.0-8.0); HEMATOCRIT 34.3 % (42-54); LYMPHOCYTES % (AUTO) 11.8 % (21.0-51.0); MEAN CORPUSCULAR HGB CONC 32.6 g/dL (32.0-36.0); MEAN CORPUSCULAR VOLUME 92.1 fL (79-99); MONOCYTES % (AUTO) 16.2 % (3.0-13.0); PLATELET COUNT (AUTO) 181 K/uL (130-400); RED BLOOD CELL COUNT(AUTO) 3.72 MIL/uL (4.50-6.20); WHITE BLOOD COUNT (AUTO) 5.8 K/uL (4.8-10.8)
[2018-01-26 14:23] LABS: INR 1.22 (0.85-1.15); PARTIAL THROMBOPLASTIN TIME 39.2 SEC (26.3-35.5); PROTHROMBIN TIME 12.8 SEC (9.6-11.6)
[2018-01-26 14:39] LABS: CREATININE 1.2 mg/dL (0.5-1.5); POTASSIUM 3.7 mmol/L (3.5-5.1)
[2018-01-26 14:44] LABS: ALBUMIN 2.2 g/dL (3.5-5.0); BILIRUBIN,TOTAL 1.2 mg/dL (0.2-1.0); TOTAL PROTEIN, SERUM 6.4 g/dL (6.0-8.3)
[2018-01-26] MEDS ORDERED: ZOSYN 3.375GM+NS 50ML 50 ML IV SCH (14:45)
[2018-01-26] MEDS ORDERED: METO100T14 PO (15:12)
[2018-01-26] MEDS ORDERED: POTA20TA82 PO (15:12)
[2018-01-26] MEDS ORDERED: OMEP20TA25 PO (15:12)
[2018-01-26] MEDS ORDERED: DILT120C10 PO (15:12)
[2018-01-26] MEDS ORDERED: LORA10CA9 PO (15:12)
[2018-01-26] MEDS ORDERED: SUVO10TA PO (15:12)
[2018-01-26] MEDS ORDERED: FURO40TA5 PO (15:12)
[2018-01-26] MEDS ORDERED: VANCOMYCIN PROTOCOL PER PHARMACY IV SCH (15:15)
[2018-01-26] MEDS ORDERED: COMPOUND IV REFRIGERATED 1 EACH IVSOLN MISC PRN (15:15)
[2018-01-26 16:02] VITALS: BP 144/96
[2018-01-26 19:00] VITALS: BP 143/104
[2018-01-26] MEDS: VANCOMYCIN 1.25 GM in SODIUM CHLORIDE 0.9% 250 ML IV SCH (19:48)
[2018-01-26] MEDS: ATORVASTATIN CALCIUM 40 MG TABLET PO SCH (21:12)
[2018-01-26] MEDS: DABIGATRAN ETEXILATE MESYLATE 150 MG CAPSULE PO SCH (21:13)
[2018-01-26] MEDS: FUROSEMIDE 40 MG TABLET PO SCH (21:13)
[2018-01-26] MEDS: METOPROLOL TARTRATE 50 MG TAB PO SCH (21:13)
[2018-01-26] MEDS: ZOSYN 3.375GM+NS 50ML 50 ML IV SCH (21:15)
[2018-01-26 23:58] VITALS: BP 122/79
[2018-01-27 03:57] VITALS: BP 126/82
[2018-01-27] MEDS: ZOSYN 3.375GM+NS 50ML 50 ML IV SCH ×3 (04:55→21:11)
[2018-01-27 08:00] VITALS: BP 135/73
[2018-01-27] MEDS: LORATADINE 10 MG TABLET PO SCH (10:17)
[2018-01-27] MEDS: METOPROLOL TARTRATE 50 MG TAB PO SCH ×2 (10:17→21:12)
[2018-01-27] MEDS: DABIGATRAN ETEXILATE MESYLATE 150 MG CAPSULE PO SCH ×2 (10:17→21:11)
[2018-01-27] MEDS: POTASSIUM CHLORIDE 20 MEQ ERTAB PO SCH (10:17)
[2018-01-27] MEDS: PANTOPRAZOLE SODIUM 40 MG TABLET.DR PO SCH (10:18)
[2018-01-27] MEDS: FUROSEMIDE 40 MG TABLET PO SCH (10:18)
[2018-01-27] MEDS: VANCOMYCIN 1.25 GM in SODIUM CHLORIDE 0.9% 250 ML IV SCH ×2 (10:18→21:11)
[2018-01-27] MEDS: DILTIAZEM HCL 120 MG CAP.SR.24H PO SCH (10:18)
[2018-01-27 11:30] VITALS: BP 137/80
[2018-01-27] MEDS ORDERED: ACETAMINOPHEN 325 MG TAB PO ONE (14:15)
[2018-01-27 16:26] VITALS: BP 124/74
[2018-01-27] MEDS: HONEY 1 APPL/ML TUBE TP SCH (18:08)
[2018-01-27] MEDS: FUROSEMIDE 10 MG/ML 4ML VIAL IV SCH (18:08)
[2018-01-27 19:00] VITALS: BP 153/67
[2018-01-27] MEDS ORDERED: FUROSEMIDE 40 MG TABLET PO SCH (19:00)
[2018-01-27] MEDS: ATORVASTATIN CALCIUM 40 MG TABLET PO SCH (21:12)
[2018-01-27] MEDS: SUVOREXANT 10 MG PO SCH (22:10)
[2018-01-28] VITALS (7 sets, daily range): BP systolic 115–164; BP diastolic 60–94
[2018-01-28 03:51] LABS: CREATININE 1.2 mg/dL (0.5-1.5); POTASSIUM 3.3 mmol/L (3.5-5.1)
[2018-01-28] MEDS: FUROSEMIDE 10 MG/ML 4ML VIAL IV SCH ×2 (05:16→17:25)
[2018-01-28] MEDS: ZOSYN 3.375GM+NS 50ML 50 ML IV SCH ×3 (05:16→22:19)
[2018-01-28] MEDS: METOPROLOL TARTRATE 50 MG TAB PO SCH ×2 (08:36→22:18)
[2018-01-28] MEDS: PANTOPRAZOLE SODIUM 40 MG TABLET.DR PO SCH (08:36)
[2018-01-28] MEDS: POTASSIUM CHLORIDE 20 MEQ ERTAB PO SCH (08:36)
[2018-01-28] MEDS: LORATADINE 10 MG TABLET PO SCH (08:36)
[2018-01-28] MEDS: DABIGATRAN ETEXILATE MESYLATE 150 MG CAPSULE PO SCH ×2 (08:36→22:16)
[2018-01-28] MEDS: DILTIAZEM HCL 120 MG CAP.SR.24H PO SCH (08:37)
[2018-01-28] MEDS: VANCOMYCIN 1.25 GM in SODIUM CHLORIDE 0.9% 250 ML IV SCH (08:43)
[2018-01-28] MEDS: HONEY 1 APPL/ML TUBE TP SCH (09:48)
[2018-01-28] MEDS: ACETAMINOPHEN 325 MG TAB PO PRN (14:00)
[2018-01-28] MEDS: SUVOREXANT 10 MG PO SCH (21:00)
[2018-01-28] MEDS: ATORVASTATIN CALCIUM 40 MG TABLET PO SCH (22:18)
[2018-01-29 03:00] VITALS: BP 146/90
[2018-01-29 04:04] LABS: CREATININE 1.4 mg/dL (0.5-1.5); POTASSIUM 3.3 mmol/L (3.5-5.1)
[2018-01-29] MEDS: ZOSYN 3.375GM+NS 50ML 50 ML IV SCH ×3 (04:57→22:57)
[2018-01-29] MEDS: FUROSEMIDE 10 MG/ML 4ML VIAL IV SCH ×2 (06:42→17:24)
[2018-01-29] MEDS ORDERED: LIDOCAINE HCL-MPF 1% 2ML VIAL IVP PRN (07:30)
[2018-01-29] MEDS ORDERED: POTASSIUM CHLORIDE 20 MEQ ERTAB PO PRN (07:30)
[2018-01-29] MEDS ORDERED: POTASSIUM CHLORIDE 20MEQ/100ML 100 ML IV PRN (07:30)
[2018-01-29] MEDS ORDERED: POTASSIUM CHLORIDE 10% ELIXIR 20 MEQ/15 ML UDCUP PO PRN (07:30)
[2018-01-29 08:09] VITALS: BP 147/75
[2018-01-29] MEDS: PANTOPRAZOLE SODIUM 40 MG TABLET.DR PO SCH (08:34)
[2018-01-29] MEDS: DILTIAZEM HCL 120 MG CAP.SR.24H PO SCH (08:34)
[2018-01-29] MEDS: METOPROLOL TARTRATE 50 MG TAB PO SCH ×2 (08:34→23:45)
[2018-01-29] MEDS: LORATADINE 10 MG TABLET PO SCH (08:34)
[2018-01-29] MEDS: POTASSIUM CHLORIDE 20 MEQ ERTAB PO SCH (08:35)
[2018-01-29] MEDS: DABIGATRAN ETEXILATE MESYLATE 150 MG CAPSULE PO SCH ×2 (08:35→20:22)
[2018-01-29 12:09] VITALS: BP 119/76
[2018-01-29] MEDS: HONEY 1 APPL/ML TUBE TP SCH (12:33)
[2018-01-29 16:00] VITALS: BP 142/87
[2018-01-29 19:00] VITALS: BP 140/82
[2018-01-29] MEDS ORDERED: POTASSIUM CHLORIDE 10 MEQ/TAB.SA PO ONE ×6 (20:04→23:16)
[2018-01-29] MEDS: VANCOMYCIN 1.25 GM in SODIUM CHLORIDE 0.9% 250 ML IV SCH (20:18)
[2018-01-29] MEDS: ATORVASTATIN CALCIUM 40 MG TABLET PO SCH (20:23)
[2018-01-29] MEDS: SUVOREXANT 10 MG PO SCH (22:06)
[2018-01-29 23:00] VITALS: BP 148/85
[2018-01-30 03:00] VITALS: BP 130/69
[2018-01-30 03:44] LABS: HEMATOCRIT 33.2 % (42-54); MEAN CORPUSCULAR HEMOGLOBIN 29.5 pg (27.0-33.0); MEAN CORPUSCULAR HGB CONC 32.4 g/dL (32.0-36.0); MEAN CORPUSCULAR VOLUME 91.2 fL (79-99); NUCLEATED RED BLOOD CELLS 0.2 % (0.0-0.19); PLATELET COUNT (AUTO) 239 K/uL (130-400); RED BLOOD CELL COUNT(AUTO) 3.64 MIL/uL (4.50-6.20); RED CELL DISTRIBUTION WIDTH 18.3 % (11.0-15.5); WHITE BLOOD COUNT (AUTO) 5.1 K/uL (4.8-10.8)
[2018-01-30 03:52] LABS: CREATININE 1.2 mg/dL (0.5-1.5); POTASSIUM 3.6 mmol/L (3.5-5.1); VANCOMYCIN LEVEL 15.6 mcg/mL (18.0-26.0)
[2018-01-30] MEDS ORDERED: POTASSIUM CHLORIDE 10 MEQ/TAB.SA PO ONE ×4 (04:53→06:27)
[2018-01-30] MEDS: ZOSYN 3.375GM+NS 50ML 50 ML IV SCH (05:20)
[2018-01-30 08:16] VITALS: BP 149/76
[2018-01-30] MEDS ORDERED: PHARMACY COMMUNICATION MISC SCH (08:45)
[2018-01-30] MEDS: POTASSIUM CHLORIDE 20 MEQ ERTAB PO SCH (09:01)
[2018-01-30] MEDS: DILTIAZEM HCL 120 MG CAP.SR.24H PO SCH (09:01)
[2018-01-30] MEDS: PANTOPRAZOLE SODIUM 40 MG TABLET.DR PO SCH (09:01)
[2018-01-30] MEDS: METOPROLOL TARTRATE 50 MG TAB PO SCH ×2 (09:01→21:23)
[2018-01-30] MEDS: FUROSEMIDE 40 MG TABLET PO SCH ×2 (09:01→17:26)
[2018-01-30] MEDS: DABIGATRAN ETEXILATE MESYLATE 150 MG CAPSULE PO SCH ×2 (09:02→21:23)
[2018-01-30] MEDS: HONEY 1 APPL/ML TUBE TP SCH (09:02)
[2018-01-30] MEDS: LORATADINE 10 MG TABLET PO SCH (09:15)
[2018-01-30 11:18] VITALS: BP 149/88
[2018-01-30] MEDS: CLINDAMYCIN HCL 150 MG CAP PO SCH ×3 (12:59→21:23)
[2018-01-30 16:08] VITALS: BP 125/78
[2018-01-30 19:34] VITALS: BP 148/101
[2018-01-30] MEDS: ATORVASTATIN CALCIUM 40 MG TABLET PO SCH (21:22)
[2018-01-30] MEDS: ACETAMINOPHEN 325 MG TAB PO PRN (23:31)
[2018-01-30] MEDS: SUVOREXANT 10 MG PO SCH (23:32)
[2018-01-30 23:53] VITALS: BP 131/87
[2018-01-31 03:39] LABS: CREATININE 1.2 mg/dL (0.5-1.5); POTASSIUM 3.4 mmol/L (3.5-5.1)
[2018-01-31 03:40] LABS: HEMATOCRIT 32.2 % (42-54); MEAN CORPUSCULAR HEMOGLOBIN 29.7 pg (27.0-33.0); MEAN CORPUSCULAR HGB CONC 32.7 g/dL (32.0-36.0); MEAN CORPUSCULAR VOLUME 90.7 fL (79-99); NUCLEATED RED BLOOD CELLS 0.1 % (0.0-0.19); PLATELET COUNT (AUTO) 268 K/uL (130-400); RED BLOOD CELL COUNT(AUTO) 3.55 MIL/uL (4.50-6.20); RED CELL DISTRIBUTION WIDTH 18.5 % (11.0-15.5); WHITE BLOOD COUNT (AUTO) 5.8 K/uL (4.8-10.8)
[2018-01-31 03:57] VITALS: BP 132/74
[2018-01-31] MEDS: HONEY 1 APPL/ML TUBE TP SCH (07:22)
[2018-01-31] MEDS: METOPROLOL TARTRATE 50 MG TAB PO SCH (07:28)
[2018-01-31] MEDS: POTASSIUM CHLORIDE 20 MEQ ERTAB PO SCH (07:28)
[2018-01-31] MEDS: DILTIAZEM HCL 120 MG CAP.SR.24H PO SCH (07:28)
[2018-01-31] MEDS: PANTOPRAZOLE SODIUM 40 MG TABLET.DR PO SCH (07:29)
[2018-01-31] MEDS: DABIGATRAN ETEXILATE MESYLATE 150 MG CAPSULE PO SCH (07:29)
[2018-01-31] MEDS: FUROSEMIDE 40 MG TABLET PO SCH (07:29)
[2018-01-31] MEDS: LORATADINE 10 MG TABLET PO SCH (07:29)
[2018-01-31 07:48] VITALS: BP 134/71
[2018-01-31] MEDS: CLINDAMYCIN HCL 150 MG CAP PO SCH ×2 (08:28→12:38)
[2018-01-31 11:13] VITALS: BP 131/86
== END 2018-01-31 13:18 | disposition home health service (06) | DRG 603 ==
LOC: EDH 13:07 → EDHIP 13:26 → 2BH 14:29 → 2AH 01-28 12:45 → 2DH 01-30 07:48
PROVIDERS: ADMIT Internal Medicine Critical Care Medicine; ATTEND Internal Medicine Critical Care Medicine
PROC: 5A09357 Assistance with Respiratory Ventilation, Less than 24 Consecutive Hours, Continuous Positive Airway Pressure (ICD-10-PCS; principal; 2018-01-26)
PROC: 5A09357 Assistance with Respiratory Ventilation, Less than 24 Consecutive Hours, Continuous Positive Airway Pressure (ICD-10-PCS; 2018-01-28)
PROC: 5A09357 Assistance with Respiratory Ventilation, Less than 24 Consecutive Hours, Continuous Positive Airway Pressure (ICD-10-PCS; 2018-01-29)
DX: L03.115 Cellulitis of right lower limb (principal); I25.5 Ischemic cardiomyopathy; I25.10 Atherosclerotic heart disease of native coronary artery without angina pectoris; I12.9 Hypertensive chronic kidney disease with stage 1 through stage 4 chronic kidney disease, or unspecified chronic kidney disease; E78.5 Hyperlipidemia, unspecified; I27.20 Pulmonary hypertension, unspecified; I34.0 Nonrheumatic mitral (valve) insufficiency; I48.2 Chronic atrial fibrillation; I73.9 Peripheral vascular disease, unspecified; N18.3 Chronic kidney disease, stage 3 (moderate); R73.9 Hyperglycemia, unspecified; I87.2 Venous insufficiency (chronic) (peripheral); Z79.01 Long term (current) use of anticoagulants; Z95.1 Presence of aortocoronary bypass graft; Z79.02 Long term (current) use of antithrombotics/antiplatelets; Z82.49 Family history of ischemic heart disease and other diseases of the circulatory system; Z95.810 Presence of automatic (implantable) cardiac defibrillator
CPT/HCPCS: 36415; 71045; 80048; 80053; 80202; 82948; 85025; 85027; 85610; 85730; 93925; 93970; A6250; G0378; J1940; J2543; J3370; J7030

== ENCOUNTER → 2018-02-18 | Outpatient (CLI) | payer OTHER ==
[~2018-02-18] MED LIST changes: -BACL10TA PO; +DILT120C10 PO; +FURO40TA5 PO; +IOHEXOL-350 75 ML VIAL IV ONE; +LORA10CA9 PO; +METO100T14 PO; -MULT-1258 PO; +OMEP20TA25 PO; +POTA20TA82 PO; +SUVO10TA PO
== END | disposition home or self-care (01) ==
LOC: RAH 09:01
PROVIDERS: ATTEND Internal Medicine Cardiovascular Disease
DX: I11.0 Hypertensive heart disease with heart failure (principal); I50.42 Chronic combined systolic (congestive) and diastolic (congestive) heart failure; I48.2 Chronic atrial fibrillation; J90 Pleural effusion, not elsewhere classified; D35.02 Benign neoplasm of left adrenal gland; I70.0 Atherosclerosis of aorta; K44.9 Diaphragmatic hernia without obstruction or gangrene; Z95.1 Presence of aortocoronary bypass graft
CPT/HCPCS: 71046; 71275; Q9967